=== PATIENT | female | born 1990 | race Caucasian/White ===

== ENCOUNTER 2017-02-18 06:10 | Emergency (ER) | payer OTHER ==
[2017-02-18] MEDS ORDERED: IPRATROPIUM/ALBUTEROL 3 ML VIAL NEB ONE ×2 (06:16→06:29)
[2017-02-18 06:23] VITALS: TEMP 97.5
--- NOTE | 2017-02-18 06:30 | ED.PDOC ---
History of Present Illness - General Chief Complaint: Respiratory Problem Stated Complaint: difficulty breathing Time Seen by Provider: 02/18/17 06:20 Source: patient, RN notes reviewed, Vital Signs reviewed Additional Information: Pt seen in [place] 4 days ago and diagnosed with PNA. Discharged with Z-Jamar, Prednisone, and Ultram. Patient reports right sided chest wall (posterior > anterior) discomfort x 5 days. 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 She remained stable during ED visit with a POX of 95-98% on RA (respiratory effort dependent). She was afebrile with a normal heart rate. She states this am prior to arrival she took Ultram and Prednisone. - History of Present Illness Timing/Duration: days - x 4 to 5 Severity: moderate Activities at Onset: none Possible Cause: unknown cause Improving Factors: medication - inhaler Worsening Factors: nothing Associated Symptoms: denies symptoms Respiratory Risk Factors: no cause identified Allergies/Adverse Reactions: Allergies NO KNOWN ALLERGY Allergy (Verified 02/18/17 06:23) Home Medications: Ambulatory Orders Albuterol Inhaler [Ventolin Hfa Inhaler] 2 puff INH QID PRN #1 inh 02/18/17 Azithromycin 500 mg PO DAILY 02/18/17 Prednisone 10 mg PO BID 02/18/17 Tramadol HCl 50 mg PO QID 02/18/17 Review of Systems - Review of Systems Constitutional: States: see HPI EENTM: States: no symptoms reported Respiratory: States: see HPI, short of breath Cardiology: States: no symptoms reported Gastrointestinal/Abdominal: States: no symptoms reported Genitourinary: States: no symptoms reported Musculoskeletal: States: no symptoms reported Skin: States: no symptoms reported Neurological: States: no symptoms reported Endocrine: States: no symptoms reported Hematologic/Lymphatic: States: no symptoms reported Past Medical History (General) - Patient Medical History Hx Seizures: No Hx Diabetes: No - Vaccination History Hx Tetanus, Diphtheria Vaccination: No Hx Influenza Vaccination: No Hx Pneumococcal Vaccination: No - Social History Hx Tobacco Use: Yes Hx Alcohol Use: Yes - Female History Hx Last Menstrual Period: 05/25/15 Patient : Yes - 17 weeks per patient Expected Date of Delivery:: 03/31/16 Family Medical History - Family History Mother Family History: No Known Living Status: Unknown Physical Exam - Physical Exam General Appearance: Alert, Other - skinny. Intermittent and inconsistent poor respiratory effort. 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 Her X-ray, vital signs, and exam are not consistent with the diagnosis of Pneumonia at this time. This is my first time seeing patient so I am unaware of any interval change/comparison related to her presentation 4 days ago. She does not appear to be in distress. She states she improved after a Duoneb and would like a Rx for an inhaler. I believe patient is stable for discharge home with trial of inhaler. Pt advised to f/u in clinic if unimproved in 2 to 3 days or return to ER if condition worsens. PERC negative making probability of PE less than 2%. - Results/Orders Results/Orders: X-Ray Report: Procedure: XR CHEST 2 VIEWS Exam Date: 02/18/2017 Ordering Provider: Heriberto Crawford Clinical Indication: SOB Comparison: None Findings: Cardiac silhouette: Normal Pulmonary vasculature : Normal Mediastinal contour: Normal Aortic contour: Normal Focal lung consolidation: None Pleural effusion: None Pneumothorax: None Acute bony or soft tissue abnormality: None Impression: 1. No acute abnormalities in the chest. Electronically signed by: Ky Wagoner MD 02/18/2017 6:40 AM CDT Dictated By: Ky Wagoner MD Signed By: Ky Wagoner MD Dictated Date/Time: 02/18/17628 Transcribed Date/Time: 02/18/17628 Spare Parts Clerk: Signed Date/Time: 02/18/17639 CC: Departure - Departure Clinical Impression: Dyspnea Qualifiers: Dyspnea type: shortness of breath Qualified Code(s): R06.02 - Shortness of breath; R06.00 - Dyspnea, unspecified; R06.01 - Orthopnea Time of Disposition: 07:00 Disposition: Discharge to Home or Self Care Condition: Fair Departure Forms: ED Discharge - Pt. Copy, Patient Portal Self Enrollment Instructions: DI for Shortness of Breath Referrals: Jeovany Dahl MD [Primary Care Provider] - 1-2 Weeks Prescriptions: Albuterol Inhaler [Ventolin Hfa Inhaler] 2 puff INH QID PRN #1 inh PRN Reason: Shortness Of Breath/Wheezing Home Medications: Ambulatory Orders Albuterol Inhaler [Ventolin Hfa Inhaler] 2 puff INH QID PRN #1 inh 02/18/17 Azithromycin 500 mg PO DAILY 02/18/17 Prednisone 10 mg PO BID 02/18/17 Tramadol HCl 50 mg PO QID 02/18/17 Additional Instructions: Use inhaler as prescribed. If unimproved in 2 to 3 days, follow-up in Primary Care Clinic. Return to ER if condition worsens.
--- NOTE | 2017-02-18 06:41 | RAD ---
Procedure: XR CHEST 2 VIEWS Exam Date: 02/18/2017 Ordering Provider: Heriberto Crawford Clinical Indication: SOB Comparison: None Findings: Cardiac silhouette: Normal Pulmonary vasculature : Normal Mediastinal contour: Normal Aortic contour: Normal Focal lung consolidation: None Pleural effusion: None Pneumothorax: None Acute bony or soft tissue abnormality: None Impression: 1. No acute abnormalities in the chest. Electronically signed by: Ky Wagoner MD 02/18/2017 6:40 AM CDT
[2017-02-18 07:01] VITALS: BP 109/68; O2SAT 95
== END 2017-02-18 07:01 | disposition home or self-care (01) ==
LOC: ER 06:10
DX: O99.512 Diseases of the respiratory system complicating pregnancy, second trimester (principal); R06.02 Shortness of breath; Z3A.17 17 weeks gestation of pregnancy; Z87.891 Personal history of nicotine dependence
CPT/HCPCS: 71020; 94640; J7620

== ENCOUNTER 2019-05-12 11:12 | Emergency (ER) | payer SELFPAY ==
[2019-05-12] MEDS ORDERED: SODIUM CHLORIDE 0.9% 1000ML 1,000 ML IVS ONE ×2 (11:31→13:16)
[2019-05-12] MEDS ORDERED: ONDANSETRON ODT 8 MG TAB SL ONE (11:31)
--- NOTE | 2019-05-12 12:36 | RAD ---
Procedure: XR ABDOMEN SUPINE AND ERECT WITH CHEST (ABD ACUTE SERIES) Exam Date: 05/12/2019 Ordering Provider: Mehran Sloan Clinical Indication: abd pain, nv 3 days Comparison: 03/07/2012 CT abdomen pelvis Findings: Upright chest x-ray: Cardiomediastinal silhouette is unremarkable. Pulmonary vasculature is unremarkable. There is no consolidation or effusion. No pneumothorax. Flat and upright abdomen: IUD noted. Nonobstructive bowel gas pattern. There is no pneumoperitoneum. There are no suspicious calcifications. No acute osseous abnormalities. Impression: 1. No acute findings. Electronically signed by: Ky Wagoner MD 05/12/2019 12:35 PM DIRECTOR OF ENGINEERING
[2019-05-12] MEDS ORDERED: ACETAMINOPHEN 325 MG TAB PO ONE (13:17)
[2019-05-12] MEDS ORDERED: PENICILLIN BENZATHINE 1.2 MU 1.2 MU/2 ML SYG IM ONE (13:39)
--- NOTE | 2019-05-12 14:58 | CT ---
EXAM DESCRIPTION: Abdoment/Pelvis w/o Contrast CLINICAL HISTORY: 28 years Female, lower abd pain, fever COMPARISON: CT abdomen and pelvis with contrast dated 03/07/2012. TECHNIQUE: Contiguous 3 mm axial images were obtained from the lung bases to the level of the proximal femora without the administration of intravenous or oral contrast. Sagittal and coronal reconstructions were reviewed. FINDINGS: Limited evaluation of the solid organs due to the lack of intravenous contrast. THORAX: The imaged lower thorax demonstrates no gross abnormality. LIVER: The liver demonstrates diffuse fatty infiltration. GALLBLADDER: Not well distended limiting detailed evaluation. PANCREAS: Appears normal with no cystic or solid lesions. SPLEEN: Enlarged in size measuring up to 13 cm. ADRENAL GLANDS: Normal with no nodules or masses. KIDNEYS: The right kidney is mildly enlarged and edematous with surrounding inflammatory stranding. Findings could represent pyonephritis versus sequelae of recent passage of a stone. Left kidney and ureter appear normal. STOMACH: Not well distended limiting detailed evaluation. SMALL BOWEL: The small bowel loops demonstrate variable degrees of distention with no abnormal dilatation or other signs to suggest bowel obstruction. LARGE BOWEL: Majority of the colon is not well-distended limiting detailed evaluation. The appendix is not definitively visualized. No evidence of free intraperitoneal air or fluid. RETROPERITONEUM: The abdominal aorta is nonaneurysmal with no significant atherosclerosis. The inferior vena cava is normal in size and caliber. No abnormally enlarged retroperitoneal lymph nodes are identified. URINARY BLADDER:The urinary bladder is well-distended with no gross abnormality. Intrauterine contraceptive device is noted. Bilateral adnexa appear normal. ADDITIONAL FINDINGS: None. BONES: No significant degenerative changes are identified in the visualized bones.No evidence of osteophytic or osteoblastic lesions. IMPRESSION: The right kidney is mildly enlarged and edematous with surrounding inflammatory stranding. Findings could represent pyonephritis versus sequelae of recent passage of a stone. Clinical correlation with urinalysis is recommended. This exam was performed according to our departmental dose-optimization program, which includes automated exposure control, adjustment of the mA and/or kV according to patient size and/or use of iterative reconstruction technique. Electronically signed by: Fernanda Dash MD 05/12/2019 2:56 PM FURNACE UTILITY OPERATOR
[2019-05-12] MEDS ORDERED: levoFLOXacin 500MG IV 500 MG in PREMIX BAG 1 BAG IVPB ONE (15:01)
[2019-05-12] MEDS ORDERED: SODIUM CHL 0.9% 50ML MIN-BAG+ 50 ML IVPB ONE (15:23)
[2019-05-12] MEDS ORDERED: cefTRIAXone SODIUM 1 GM VIAL ONE (15:23)
[2019-05-12] MEDS: cefTRIAXone SODIUM 1 GM in SODIUM CHL 0.9% 50ML MIN-BAG+ 50 ML IVPB ONE ×2 (15:25→16:37)
[2019-05-12] MEDS ORDERED: cefTRIAXone SODIUM 1 GM VIAL IM ONE (15:55)
[2019-05-12] MEDS ORDERED: CIPROFLOXACIN 500 MG TAB PO ONE (15:55)
--- NOTE | 2019-05-12 15:58 | ED.PDOC ---
History of Present Illness - General Chief Complaint: General Stated Complaint: sorethroat, diarrhea and vomiting Time Seen by Provider: 05/12/19 11:24 Source: patient Exam Limitations: no limitations - History of Present Illness Initial Comments: the patient is a 28-year-old female presenting to the emergency room with right-sided abdominal and back pain has been worsening for the last 3 days. She does currently have a fever. She has had a cough and a sore throat as well. Mild shortness of breath. She has had some nausea and vomiting. No real diarrhea. She has been getting dizzy with sitting. Oral intake has been poor. No rash. Timing/Duration: constant, getting worse Severity: moderate Improving Factors: nothing Worsening Factors: nothing Associated Symptoms: fever/chills, malaise, nausea/vomiting, weakness Allergies/Adverse Reactions: Allergies NO KNOWN ALLERGY Allergy (Verified 05/12/19 12:34) Home Medications: Ambulatory Orders Ciprofloxacin [Cipro] 500 mg PO BID #20 tab 05/12/19 Levonorgestrel (Iud) [Mirena] 0 mcg VAG ONCE 05/12/19 Nitrofurantoin Monohydrate Mac [Macrobid] 100 mg PO BID #20 capsule 05/12/19 Ondansetron Odt [Zofran ODT] 4 mg PO Q8HR PRN #5 tab 05/12/19 Review of Systems - Review of Systems Constitutional: States: fever, malaise EENTM: States: throat pain Respiratory: States: cough Cardiology: States: no symptoms reported Gastrointestinal/Abdominal: States: abdominal pain, nausea, vomiting Genitourinary: States: no symptoms reported Musculoskeletal: States: back pain - right sided Skin: States: no symptoms reported Neurological: States: no symptoms reported Endocrine: States: no symptoms reported All other Systems: No Change from Baseline Past Medical History (General) - Patient Medical History Hx Seizures: No Hx Stroke: No Hx Dementia: No Hx Asthma: No Hx of COPD: No Hx Cardiac Disorders: No Hx Congestive Heart Failure: No Hx Pacemaker: No Hx Hypertension: No Hx Thyroid Disease: No Hx Diabetes: No Hx Gastroesophageal Reflux: No Hx Renal Disease: No Hx Cancer: No Hx of HIV: No Hx Hepatitis C: No Hx MRSA: No Surgical History: no surgical history - Vaccination History Hx Tetanus, Diphtheria Vaccination: No Hx Influenza Vaccination: No Hx Pneumococcal Vaccination: No - Social History Hx Tobacco Use: Yes Hx Chewing Tobacco Use: No Hx Alcohol Use: Yes - socially Hx Substance Use: Yes Hx Substance Use Treatment: No Hx Depression: No Hx Physical Abuse: No Hx Emotional Abuse: No - Female History Patient is a Female of Child Bearing Age (10 -59 yrs old): Yes Hx Last Menstrual Period: 05/25/15 Patient : No Expected Date of Delivery:: 03/31/16 - Triage Comment ED Triage Comment: Mirana control Family Medical History - Family History Mother Family History: No Known Living Status: Unknown Physical Exam - Physical Exam General Appearance: Alert, Ill Appearing Eye Exam: bilateral normal Ears, Nose, Throat: hearing grossly normal, nasal congestion, pharyngeal erythema Neck: full range of motion, supple Respiratory: lungs clear - she does have a mild cough, normal breath sounds, no respiratory distress, no accessory muscle use Cardiovascular/Chest: normal peripheral pulses, no edema, tachycardia Peripheral Pulses: radial,right: 2+, radial,left: 2+, dorsalis pedis,right: 2+, dorsalis pedis,left: 2+ Gastrointestinal/Abdominal: soft, other - diffuse right abdominal discomfort palpation. She does have some guarding. 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, alert, normal mood/affect, oriented x 3 Skin Exam: pallor Comments: Vital Signs - 24 hr 05/12/19 05/12/19 05/12/19 11:20 12:41 13:00 Temperature 101.6 F H Pulse Rate [ 135 H 121 H 109 H pulse ox] Respiratory 22 20 18 Rate Blood Pressure 101/59 121/69 119/66 [Right Arm] O2 Sat by Pulse 99 99 97 Oximetry 05/12/19 05/12/19 14:00 15:00 Temperature 101 F H 98.4 F Pulse Rate [ 111 H 109 H pulse ox] Respiratory 18 18 Rate Blood Pressure 109/59 121/75 [Right Arm] O2 Sat by Pulse 95 100 Oximetry Progress - Progress Progress: 05/12/19 16:00 the patient is a 28-year-old female presenting to emergency room with what appears to be pyelonephritis of the right side. No obvious evidence of any abscess. The patient is feeling much better after 2 L of IV fluids. Additionally she did test positive for streptococcal pharyngitis and received Bicillin LA. She also is receiving a dose of Rocephin IM and a dose of ciprofloxacin by mouth for the pyelonephritis. She is going to be covered for the pyelonephritis with Macrobid for 10 days and ciprofloxacin for 10 days. GC chlamydia test have been sent out however the pelvic exam clinically was essentially benign. The patient also does have some mild hypokalemia and received a dose of oral potassium here. she does need to have a repeat potassium check with her primary care doctor next week. Tachycardia has significantly improved. She does need to keep herself well-hydrated. Obviously if she is worsening rather than improving then she will need to come back in for IV antibiotics. The patient is clinically improving. She is a difficult IV access and has deferred further attempts at this time in favor of the plan of care above. This does seem to be a reasonable plan of care. ER warnings were given. [email or web address] [email or web address] [id number] 05/12/19 16:03 - Results/Orders Results/Orders: Laboratory Tests 05/12/19 05/12/19 05/12/19 12:40 12:40 12:40 WBC RBC Hgb Hct MCV MCH MCHC RDW Plt Count MPV Absolute Neuts (auto) Absolute Lymphs (auto) Absolute Monos (auto) Absolute Eos (auto) Neutrophils % Neutrophils % (Manual) Lymphocytes % Lymphocytes % (Manual) Monocytes % Monocytes % (Manual) Eosinophils % Basophils % Band Neutrophils Platelet Estimate Normal RBC Morphology Sodium 130 L Potassium 2.9 L Chloride 97 L Carbon Dioxide 21 Anion Gap 14.9 BUN 20 H Creatinine 1.11 BUN/Creatinine Ratio 18.0 Random Glucose 113 H Serum Osmolality 264.2 L Lactic Acid Cancelled Calcium 7.4 L Magnesium 1.2 L Total Bilirubin 0.6 AST 25 ALT 61 H Alkaline Phosphatase 66 Creatine Kinase 21 L CK-MB (CK-2) 0.4 CK-MB (CK-2) % Not Reportable Troponin I < 0.02 Serum Total Protein 6.6 Albumin 3.1 L Globulin 3.5 Albumin/Globulin Ratio 0.9 L Amylase 20 L Lipase < 14 L Serum HCG, Qual Cancelled Urine Color Urine Appearance Urine pH Ur Specific Spray Urine Protein Urine Glucose (UA) Urine Ketones Urine Blood Urine Nitrite Urine Bilirubin Urine Urobilinogen Ur Leukocyte Esterase Urine RBC Urine WBC Ur Epithelial Cells Urine Bacteria Urine Mucus Urine HCG, Qual Negative Group A Strep Rapid Positive 05/12/19 05/12/19 13:00 14:45 WBC 10.1 RBC 3.80 L Hgb 11.4 L Hct 33.3 L MCV 87.6 MCH 30.1 MCHC 34.3 RDW 12.8 Plt Count 142 MPV 8.3 Absolute Neuts (auto) Not Reportable Absolute Lymphs (auto) Not Reportable Absolute Monos (auto) Not Reportable Absolute Eos (auto) Not Reportable Neutrophils % Not Reportable Neutrophils % (Manual) 82.0 H Lymphocytes % Not Reportable Lymphocytes % (Manual) 9.0 Monocytes % Not Reportable Monocytes % (Manual) 4.0 Eosinophils % Not Reportable Basophils % Not Reportable Band Neutrophils 5.0 H Platelet Estimate Normal Normal RBC Morphology Normal rbc morph Sodium Potassium Chloride Carbon Dioxide Anion Gap BUN Creatinine BUN/Creatinine Ratio Random Glucose Serum Osmolality Lactic Acid Calcium Magnesium Total Bilirubin AST ALT Alkaline Phosphatase Creatine Kinase CK-MB (CK-2) CK-MB (CK-2) % Troponin I Serum Total Protein Albumin Globulin Albumin/Globulin Ratio Amylase Lipase Serum HCG, Qual Urine Color Yellow Urine Appearance Cloudy Urine pH 6.0 Ur Specific Spray 1.020 Urine Protein 100 H Urine Glucose (UA) Negative Urine Ketones Trace Urine Blood Large H Urine Nitrite Positive H Urine Bilirubin Small H Urine Urobilinogen 4.0 H Ur Leukocyte Esterase Moderate H Urine RBC >50 H Urine WBC >50 H Ur Epithelial Cells 3-5 Urine Bacteria 4+ H Urine Mucus Large Urine HCG, Qual Group A Strep Rapid acute abdominal series appears benign. CT of abdomen and pelvis without contrast shows no evidence of any appendicitis or gallbladder issue however there does appear to be some perinephric stranding around the right kidney. Departure - Departure Clinical Impression: Pyelonephritis, Hypokalemia, Strep throat, Dehydration Disposition: Discharge to Home or Self Care Condition: Fair Departure Forms: ED Discharge - Pt. Copy, Patient Portal Self Enrollment Instructions: Urinary Tract Infection, Adult (DC), Kidney Infection (DC), Hypokalemia (DC), Sore Throat, Adult (DC) Diet: bland diet Activity: increase activity as tolerated Prescriptions: Ondansetron Odt [Zofran ODT] 4 mg PO Q8HR PRN #5 tab PRN Reason: Nausea--Moderate Ciprofloxacin [Cipro] 500 mg PO BID #20 tab Nitrofurantoin Monohydrate Mac [Macrobid] 100 mg PO BID #20 capsule Home Medications: Ambulatory Orders Ciprofloxacin [Cipro] 500 mg PO BID #20 tab 05/12/19 Levonorgestrel (Iud) [Mirena] 0 mcg VAG ONCE 05/12/19 Nitrofurantoin Monohydrate Mac [Macrobid] 100 mg PO BID #20 capsule 05/12/19 Ondansetron Odt [Zofran ODT] 4 mg PO Q8HR PRN #5 tab 05/12/19 Additional Instructions: the patient is a 28-year-old female presenting to emergency room with what appears to be pyelonephritis of the right side. No obvious evidence of any abscess. The patient is feeling much better after 2 L of IV fluids. Additionally she did test positive for streptococcal pharyngitis and received Bicillin LA. She also is receiving a dose of Rocephin IM and a dose of ciprofloxacin by mouth for the pyelonephritis. She is going to be covered for the pyelonephritis with Macrobid for 10 days and ciprofloxacin for 10 days. GC chlamydia test have been sent out however the pelvic exam clinically was essentially benign. The patient also does have some mild hypokalemia and received a dose of oral potassium here. she does need to have a repeat potassium check with her primary care doctor next week. Tachycardia has significantly improved. She does need to keep herself well-hydrated. Obviously if she is worsening rather than improving then she will need to come back in for IV antibiotics. The patient is clinically improving. She is a difficult IV ac cess and has deferred further attempts at this time in favor of the plan of care above. This does seem to be a reasonable plan of care. ER warnings were given.
[2019-05-12] MEDS ORDERED: POTASSIUM CHLORIDE ELIXIR 20 MEQ/15 ML UD PO ONE (16:03)
[2019-05-12] MEDS ORDERED: LIDOCAINE 1% 2 ML VIAL INJ ONE (16:10)
[2019-05-12] MEDS ORDERED: traMADol HCL 50 MG TAB PO ONE (16:29)
[2019-05-12 16:41] VITALS: BP 118/68; TEMP 99; O2SAT 97
== END 2019-05-12 16:41 | disposition home or self-care (01) ==
LOC: ER 11:12
DX: N12 Tubulo-interstitial nephritis, not specified as acute or chronic (principal); J02.0 Streptococcal pharyngitis; E86.0 Dehydration; E87.6 Hypokalemia; R11.2 Nausea with vomiting, unspecified; Z87.891 Personal history of nicotine dependence
CPT/HCPCS: 36415; 74019; 74176; 80053; 81001; 81025; 82150; 82550; 82553; 83690; 83735; 84484; 85025; 87086; 87210; 87491; 87502; 87591; 87880; J0561; J0696; J7030; J7050

== ENCOUNTER 2020-02-26 14:11 | Inpatient (IN) | payer SELFPAY ==
[2020-02-26] MEDS ORDERED: PROMETHAZINE HCL INJ 25 MG in SODIUM CHLORIDE 0.9% 50ML 50 ML IVPB ONE (14:44)
[2020-02-26] MEDS ORDERED: SODIUM CHLORIDE 0.9% 1000ML 1,000 ML IVS ONE (14:44)
--- NOTE | 2020-02-26 15:52 | RAD ---
EXAM DESCRIPTION: Abdomen Series CLINICAL HISTORY: 29 years Female, nv, rt flank pain COMPARISON: May 12, 2019 FINDINGS: Single view of the chest demonstrates a normal-sized heart and normal vascularity. The lungs are well-expanded and clear. No infiltrates. No free abdominal Bowel gas pattern is normal without obstruction or ileus. Small air-fluid level within the stomach noted and nonspecific. IUD overlies the right-sided central pelvis small amount of radiopaque material in the right lower quadrant likely represents ingested material in the distal small bowel or right colon. No obstruction or ileus noted. Bony spine and pelvis are unremarkable. Calculi overlying the contours of the kidneys not apparent. Small density overlying paraspinous regions on the left and along the psoas margin on the right are not evident on the upright view and likely represent foreign material within the bowel. IMPRESSION: Normal abdominal series including chest one view and abdomen two views Electronically signed by: Wilmar Bower MD 02/26/2020 3:50 PM CDT
[2020-02-26] MEDS ORDERED: MAGNESIUM SULFATE PREMIX 4GM 4 GM in PREMIX BAG 1 BAG IVPB ONE (16:02)
[2020-02-26] MEDS ORDERED: KCL 40MEQ/NS 1,000 ML IVS ONE (16:02)
[2020-02-26] MEDS ORDERED: SUCRALFATE 1 GM/10 ML 1 GM UD PO ONE (16:03)
[2020-02-26] MEDS ORDERED: cefTRIAXone SODIUM 1 GM in SODIUM CHL 0.9% 50ML MIN-BAG+ 50 ML IVPB ONE (17:35)
[2020-02-26] MEDS ORDERED: HYDROcodone 5MG/APAP 325MG 1 EA TAB PO ONE (18:02)
--- NOTE | 2020-02-26 18:58 | CT ---
EXAM: CT Abdomen and Pelvis With Intravenous Contrast CLINICAL HISTORY: left side pain, n/v, uti TECHNIQUE: Axial computed tomography images of the abdomen and pelvis with intravenous contrast. Sagittal and coronal reformatted images were created and reviewed. This CT exam was performed using one or more of the following dose reduction techniques: automated exposure control, adjustment of the mA and/or kV according to patient size, and/or use of iterative reconstruction technique. COMPARISON: 05/12/2019. FINDINGS: Limitations: None. Lung bases: No abnormality noted. Pleural space: No abnormality noted. ABDOMEN: Liver: Upper normal size of the liver. No mass or ductal dilatation. Gallbladder and bile ducts: The gallbladder is collapsed and not optimally assessed. Appearance stable. Pancreas: Homogeneous enhancement. No mass, inflammation or ductal dilation. Spleen: The spleen is upper normal size. Adrenals: Visualized portions appear normal. Kidneys and ureters: There is heterogeneous enhancement of both kidneys with areas of hypoattenuation left greater than right. No hydronephrosis or stone. Mild bilateral perinephric edema noted. There is bilateral mild urothelial thickening. No stones or mass. Stomach and bowel: No distension or mucosal thickening. No inflammation noted. PELVIS: Appendix: Well seen and appears normal. Bladder: No filling defects to suggest mass or large stone. No inflammation. Reproductive: No abnormalities noted. ABDOMEN and PELVIS: Intraperitoneal space: No free air. No significant fluid collection. Bones/joints: No acute fracture or osseous destruction. Normal alignment. Soft tissues: No abnormality noted. Vasculature: No abdominal aortic aneurysm. Lymph nodes: No pathologically enlarged lymph nodes. Tubes, lines and devices: Intrauterine contraceptive device in good position. IMPRESSION: Abnormalities of the kidneys and urothelium most consistent with left greater than right bilateral pyelonephritis. Electronically signed by: Maribell Dang MD 02/26/2020 6:56 PM CDT
[2020-02-26] MEDS ORDERED: levoFLOXacin 500MG IV 500 MG in PREMIX BAG 1 BAG IVPB ONE (19:02)
--- NOTE | 2020-02-26 19:18 | ED.PDOC ---
History of Present Illness - General Chief Complaint: Abdominal Pain Stated Complaint: abdominal/back pain Time Seen by Provider: 02/26/20 14:27 Source: patient Exam Limitations: no limitations - History of Present Illness Initial Comments: The patient is a 29-year-old female presenting to the emergency room secondary to left-sided back pain with associated nausea and vomiting over the last 2 to 3 days. She has been vomiting at least every hour or so. No blood. Questionable fevers. She has had diaphoresis. She has had some urinary frequency. She thinks that she has had a history of kidney stones. She reports having a Mirena in place. She has had pyelonephritis in the past. She feels weak and dizzy and does have a headache. No runny nose or sore throat. Timing/Duration: other - 2 to 3 days Severity: severe Improving Factors: nothing Worsening Factors: movement Associated Symptoms: diaphoresis, fever/chills, headaches, loss of appetite, malaise, nausea/vomiting Allergies/Adverse Reactions: Allergies NO KNOWN ALLERGY Allergy (Verified 02/26/20 15:55) Home Medications: Ambulatory Orders Ciprofloxacin [Cipro] 500 mg PO BID #20 tab 05/12/19 Levonorgestrel (Iud) [Mirena] 0 mcg VAG ONCE 05/12/19 Nitrofurantoin Monohydrate Mac [Macrobid] 100 mg PO BID #20 capsule 05/12/19 Ondansetron Odt [Zofran ODT] 4 mg PO Q8HR PRN #5 tab 05/12/19 Review of Systems - Review of Systems Constitutional: States: fever, malaise EENTM: States: no symptoms reported Respiratory: States: no symptoms reported Cardiology: States: no symptoms reported Gastrointestinal/Abdominal: States: abdominal pain, nausea, vomiting Genitourinary: States: frequency Musculoskeletal: States: back pain Skin: States: no symptoms reported Neurological: States: headache Endocrine: States: no symptoms reported All other Systems: No Change from Baseline Past Medical History (General) - Patient Medical History Hx Seizures: No Hx Stroke: No Hx Dementia: No Hx Asthma: No Hx of COPD: No Hx Cardiac Disorders: No Hx Congestive Heart Failure: No Hx Pacemaker: No Hx Hypertension: No Hx Thyroid Disease: No Hx Diabetes: No Hx Gastroesophageal Reflux: No Hx Renal Disease: No Hx Cancer: No Hx of HIV: No Hx Hepatitis C: No Hx MRSA: No - Vaccination History Hx Tetanus, Diphtheria Vaccination: No Hx Influenza Vaccination: No Hx Pneumococcal Vaccination: No - Social History Hx Tobacco Use: Yes Hx Chewing Tobacco Use: No Hx Alcohol Use: Yes - socially Hx Substance Use: Yes Hx Substance Use Treatment: No Hx Depression: No Hx Physical Abuse: No Hx Emotional Abuse: No - Activities of Daily Living Hospice Agency (if applicable):: None - Female History Patient is a Female of Child Bearing Age (10 -59 yrs old): No Hx Last Menstrual Period: 05/25/15 Patient : No Expected Date of Delivery:: 03/31/16 Family Medical History - Family History Mother Family History: No Known Living Status: Unknown Physical Exam - Physical Exam General Appearance: Alert, Obvious distress, Ill Appearing Eye Exam: bilateral normal Ears, Nose, Throat: hearing grossly normal, normal pharynx Neck: full range of motion, supple Respiratory: lungs clear, normal breath sounds, no respiratory distress, no accessory muscle use Cardiovascular/Chest: normal peripheral pulses, no edema, tachycardia Peripheral Pulses: radial,right: 2+, radial,left: 2+ Gastrointestinal/Abdominal: soft, other - Mild left-sided discomfort to palpation. No rebound or peritoneal signs. Rectal Exam: deferred Back Exam: CVA tenderness (L) Extremity: normal range of motion, non-tender, normal inspection, no pedal edema, normal capillary refill Neurologic: menu planner II-XII nml as tested, alert, normal mood/affect, oriented x 3 Skin Exam: normal color Comments: Vital Signs - 8 hr 02/26/20 02/26/20 02/26/20 14:43 15:50 16:00 Temperature 99.2 F 99.2 F Pulse Rate [ 121 H 121 H 106 H brachial] Respiratory 22 22 22 Rate Blood Pressure 116/70 123/74 [Left Arm] O2 Sat by Pulse 95 96 Oximetry 02/26/20 02/26/20 17:00 18:00 Temperature Pulse Rate [ 96 H 95 H brachial] Respiratory 16 16 Rate Blood Pressure 112/71 115/66 [Left Arm] O2 Sat by Pulse 95 95 Oximetry Progress - Progress Progress: 02/26/20 19:20 The patient is a 29-year-old female presented emergency room secondary to nausea and vomiting for last couple of days it appears to be due to bilateral pyelonephritis. The patient has been started on Rocephin and Levaquin. She has additionally tested positive for strep throat, however she is asymptomatic at this time. She may be a carrier for that. She may benefit from a dose of Bicillin in the near future. The patient does have some electrolyte abnormalities which we are correcting here. These will need to be followed. Admit for IV antibiotics for bilateral pyelonephritis with significant nausea and vomiting. The patient did receive a liter of IV fluids for the dehydration. She also received some acid reducing medications. Admit for continued care. - Results/Orders Results/Orders: CT scan of abdomen pelvis confirms bilateral pyelonephritis, left greater than right. See report for additional details Laboratory Tests 02/26/20 02/26/20 02/26/20 15:00 15:05 15:15 WBC RBC Hgb Hct MCV MCH MCHC RDW Plt Count MPV Absolute Neuts (auto) Absolute Lymphs (auto) Absolute Monos (auto) Absolute Eos (auto) Absolute Basos (auto) Neutrophils % Lymphocytes % Monocytes % Eosinophils % Basophils % Sodium 131 L Potassium 3.1 L Chloride 96 L Carbon Dioxide 19 L Anion Gap 19.1 H BUN 11 Creatinine 0.83 BUN/Creatinine Ratio 13.3 Random Glucose 135 H Serum Osmolality 264.1 L Lactic Acid Calcium 9.1 Magnesium 1.5 L Total Bilirubin 1.2 H AST 30 ALT 98 H Alkaline Phosphatase 101 Creatine Kinase 37 CK-MB (CK-2) 0.5 CK-MB (CK-2) % Not Reportable Troponin I < 0.02 B-Natriuretic Peptide 33.1 Serum Total Protein 8.0 Albumin 4.0 Globulin 4.0 H Albumin/Globulin Ratio 1.0 L Amylase 33 Lipase 21 L TSH 0.67 Serum HCG, Qual Negative Urine Color Urine Appearance Urine pH Ur Specific [place] Urine Protein Urine Glucose (UA) Urine Ketones Urine Blood Urine Nitrite Urine Bilirubin Urine Urobilinogen Ur Leukocyte Esterase Urine RBC Urine WBC Ur Epithelial Cells Amorphous Sediment Urine Bacteria Group A Strep Rapid Positive H 02/26/20 02/26/20 02/26/20 15:15 15:15 16:20 WBC 11.0 H RBC 4.00 L Hgb 12.7 Hct 36.0 MCV 90.0 MCH 31.8 H MCHC 35.3 RDW 12.4 Plt Count 189 MPV 8.4 Absolute Neuts (auto) 9.20 H Absolute Lymphs (auto) 0.50 L Absolute Monos (auto) 1.20 H Absolute Eos (auto) 0.10 Absolute Basos (auto) 0.00 Neutrophils % 83.3 H Lymphocytes % 4.5 L Monocytes % 11.1 H Eosinophils % 0.7 L Basophils % 0.4 Sodium Potassium Chloride Carbon Dioxide Anion Gap BUN Creatinine BUN/Creatinine Ratio Random Glucose Serum Osmolality Lactic Acid 1.4 Calcium Magnesium Total Bilirubin AST ALT Alkaline Phosphatase Creatine Kinase CK-MB (CK-2) CK-MB (CK-2) % Troponin I B-Natriuretic Peptide Serum Total Protein Albumin Globulin Albumin/Globulin Ratio Amylase Lipase TSH Serum HCG, Qual Urine Color Yellow Urine Appearance Clear Urine pH 5.5 Ur Specific [place] 1.010 Urine Protein Negative Urine Glucose (UA) Negative Urine Ketones 40 H Urine Blood Moderate H Urine Nitrite Negative Urine Bilirubin Negative Urine Urobilinogen 1.0 Ur Leukocyte Esterase Moderate H Urine RBC 5-10 H Urine WBC 20-30 H Ur Epithelial Cells 3-5 Amorphous Sediment 2+ Urine Bacteria 2+ H Group A Strep Rapid Departure - Departure Clinical Impression: Pyelonephritis, Dehydration, Hypokalemia, Hypomagnesemia Nausea and vomiting Qualifiers: Vomiting type: unspecified Vomiting Intractability: non-intractable Qualified Code(s): R11.2 - Nausea with vomiting, unspecified Disposition: Admit Patient Departure Forms: ED Discharge - Pt. Copy, Patient Portal Self Enrollment Home Medications: Ambulatory Orders Ciprofloxacin [Cipro] 500 mg PO BID #20 tab 05/12/19 Levonorgestrel (Iud) [Mirena] 0 mcg VAG ONCE 05/12/19 Nitrofurantoin Monohydrate Mac [Macrobid] 100 mg PO BID #20 capsule 05/12/19 Ondansetron Odt [Zofran ODT] 4 mg PO Q8HR PRN #5 tab 05/12/19 Decision To Admit - Decistion To Admit Decision to Admit Reason: Medical Nature Decision to Admit Date: 02/26/20 Decision to Admit Time: 19:22
--- NOTE | 2020-02-26 19:50 | HP ---
SUPERVISING PHYSICIAN: Ken Cason MD CHIEF COMPLAINT: Abdominal and back pain. HISTORY OF PRESENT ILLNESS: This is a 29 year-old female patient who presented to the Emergency Room for back pain that was especially located to the left side. She has had nausea and vomiting that has been going on for the past 1 to 2 days. There are no other symptoms noted. She does have a history of kidney stones and has had pyelonephritis in the past. Her initial vital signs showed a low grade temperature of 99.0, heart rate 121, blood pressure 116/70, respiratory rate 22. Her lab studies showed a WBC of 11,000 with hemoglobin of 12.7, hematocrit 36. She did have a left shift on her differential. Sodium 131, potassium 3.1, chloride 96, carbon dioxide 19, BUN 11, creatinine 0.83, magnesium 1.5, bilirubin of 1.2. ALT 98. Serum HCG was negative. Amylase 33, lipase 21, lactic acid 1.4. Urinalysis showed 40 urine ketones, moderate urine blood, moderate urine leukocyte esterase, 5 to 10 urine RBCs, 20 to 30 urine WBCs and 2+ urine bacteria. Group A strep was positive. Urine culture was ordered. Blood cultures were drawn, she is Covid-19 negative. Abdominal x-ray showed normal abdominal series including chest one-view and abdomen 2-view. Her abdomen/pelvis CT showed abnormalities of the kidney and the urothelial most consistent with left greater than right bilateral pyelonephritis. The patient was given Levaquin and ceftriaxone as well as some fluids and was given some pain medication and admitted to the hospital in stable condition. PAST MEDICAL HISTORY: 1. Pyelonephritis. 2. History of kidney stones. 3. History of drug abuse. PAST SURGICAL HISTORY: None. CURRENT MEDICATIONS: ALLERGIES: No known drug allergies. FAMILY HISTORY: SOCIAL HISTORY: She lives in [place]. She smokes cigarettes. She has a history of drug abuse but has stopped. She drinks alcohol on a social bases. REVIEW OF SYSTEMS: GENERAL: Positive for low-grade fever, negative for chills or weight changes. HEENT: Negative for sinus symptoms, ear pain, vision changes, sore throat. RESPIRATORY: Negative for coughing, wheezing, shortness of breath CARDIAC: Negative for chest pain, palpitations, tachycardia. GI: Positive for nausea and vomiting, negative for constipation or diarrhea. GENITOURINARY: Negative for hematuria, dysuria, polyuria. MUSCULOSKELETAL: Positive for bilateral back pain. Negative for arthralgias or myalgias. SKIN: Negative for lesions or rashes. NEUROLOGICAL: Positive for dizziness and weakness. Negative for seizures. PHYSICAL EXAMINATION: VITAL SIGNS: Temperature 98.2, heart rate 68, blood pressure 102/66, respiratory rate 20, oxygen saturation 98% on room air. GENERAL: This is a 29 year-old female patient who is lying in her hospital bed. She is in no acute distress. HEENT: Normocephalic and atraumatic. Pupils are equal and reactive. Oropharynx is clear. NECK: Supple without mass. CHEST: Essentially clear to auscultation bilaterally. CARDIOVASCULAR: Regular rate and rhythm. ABDOMEN: Soft, nondistended, non-tender. Bowel sounds are positive. BACK: CVA tenderness bilaterally. Her left side is more tender than the right side. EXTREMITIES: Skin is warm and dry. GENITOURINARY: Deferred. NEUROLOGIC: She is awake, alert, and oriented x3. Cranial nerves II through XII are grossly intact as tested. Labs and films are as per the history of present illness. ASSESSMENT: 1. Sepsis related to bilateral pyelonephritis with admitting heart rate of 121, respiratory rate 22 and a low-grade of 99.2. She did have an elevated WBC at 11,000. She was positive for bilateral pyelonephritis per CT exam. 2. Streptococcal pharyngitis. 3. History of drug obese. 4. Nicotine abuse. PLAN: Patient has been admitted in stable condition. We will continue with the Levaquin and Rocephin and monitor her cultures as they become available. I have also ordered GC Chlamydia screen, although she denies any other partners but her significant other for quite some time. We discussed tobacco cessation and hopefully we can discharge in the next 2 days or so. I have ordered some lab for in the morning. We will continue to monitor her closely and follow as needed. #[id number] [facility]
[2020-02-26] MEDS ORDERED: SODIUM CHLORIDE 0.9% (FLUSH) 10 ML SYG IV PRN (21:11)
[2020-02-26] MEDS ORDERED: IV SET AND CAP CHANGE INJ INJ SCH (21:30)
[2020-02-26] MEDS ORDERED: PROMETHAZINE HCL INJ 25 MG in SODIUM CHLORIDE 0.9% 50ML 50 ML IVPB PRN (21:35)
[2020-02-26] MEDS ORDERED: SODIUM CHLORIDE 0.9% 50ML 50 ML ONE (21:37)
[2020-02-26] MEDS ORDERED: PROMETHAZINE HCL INJ 25 MG/ML VIAL ONE (21:37)
[2020-02-26] MEDS: KCL 40 MEQ/D5 1/2NS 1,000 ML IVS PRN (22:03)
[2020-02-26] MEDS ORDERED: ONDANSETRON INJ 4 MG/2 ML VIAL IV PRN (22:58)
[2020-02-27] MEDS: traMADol HCL 50 MG TAB PO PRN ×2 (04:23→15:39)
[2020-02-27] MEDS: KCL 40 MEQ/D5 1/2NS 1,000 ML IVS PRN ×3 (06:06→23:40)
[2020-02-27] MEDS ORDERED: KETOROLAC TROMETHAMINE INJ 30 MG/ML VIAL IV ONE (06:07)
[2020-02-27] MEDS: PANTOPRAZOLE SODIUM IV 40 MG VIAL IV SCH (06:16)
[2020-02-27] MEDS: cefTRIAXone SODIUM 1 GM in SODIUM CHL 0.9% 50ML MIN-BAG+ 50 ML IVPB SCH (09:22)
[2020-02-27] MEDS: levoFLOXacin 500MG IV 500 MG in PREMIX BAG 1 BAG IVPB SCH (10:05)
[2020-02-27] MEDS: KETOROLAC TROMETHAMINE INJ 30 MG/ML VIAL IV SCH ×2 (12:14→17:31)
[2020-02-27] MEDS ORDERED: ACETAMINOPHEN 325 MG TAB PO PRN (17:24)
[2020-02-27] MEDS ORDERED: ACETAMINOPHEN 325 MG TAB ONE (17:27)
[2020-02-27] MEDS ORDERED: ENOXAPARIN SODIUM 40 MG/0.4 ML SYG SUBCU ONE (19:07)
[2020-02-27] MEDS ORDERED: KETOROLAC TROMETHAMINE INJ 30 MG/ML VIAL ONE (19:07)
[2020-02-27] MEDS ORDERED: ENOXAPARIN SODIUM 40 MG/0.4 ML SYG SUBCU SCH (21:00)
[2020-02-28] MEDS: KETOROLAC TROMETHAMINE INJ 30 MG/ML VIAL IV SCH ×2 (00:07→06:02)
[2020-02-28] MEDS: traMADol HCL 50 MG TAB PO PRN (02:15)
[2020-02-28] MEDS: PANTOPRAZOLE SODIUM IV 40 MG VIAL IV SCH (06:05)
[2020-02-28] MEDS ORDERED: ASPIRIN (ENTERIC COATED) 81 MG TAB PO ONE (09:01)
[2020-02-28] MEDS ORDERED: CLOPIDOGREL 75 MG TAB ONE (09:01)
[2020-02-28] MEDS: cefTRIAXone SODIUM 1 GM in SODIUM CHL 0.9% 50ML MIN-BAG+ 50 ML IVPB SCH (09:15)
[2020-02-28 09:22] VITALS: BP 100/65; TEMP 97.3; O2SAT 99
[2020-02-28] MEDS: levoFLOXacin 500MG IV 500 MG in PREMIX BAG 1 BAG IVPB SCH (10:20)
--- NOTE | 2020-02-28 21:33 | DS ---
SUPERVISING PHYSICIAN: Ken Cason M.D. ADMISSION DIAGNOSIS: 1. Bilateral pyelonephritis. 2. Sepsis secondary to #1. 3. Group A Streptococcal pharyngitis. 4. History of drug abuse. 5. Nicotine addiction in a current smoker. DISCHARGE DIAGNOSIS: 1. Sepsis secondary to bilateral pyelonephritis. 2. Bilateral pyelonephritis as noted on CT exam. 3. Group A Streptococcal pharyngitis. 4. Past history of drug abuse. 5. Chronic nicotine addiction in a current smoker. REASON FOR HOSPITALIZATION: This is a 29 year-old female patient who presented to the Emergency Room for back pain that was especially located to the left side. She has had nausea and vomiting that has been going on for the past 1 to 2 days. There are no other symptoms noted. She does have a history of kidney stones and has had pyelonephritis in the past. Her initial vital signs showed a low grade temperature of 99.0, heart rate 121, blood pressure 116/70, respiratory rate 22. Her lab studies showed a WBC of 11,000 with hemoglobin of 12.7, hematocrit 36. She did have a left shift on her differential. Sodium 131, potassium 3.1, chloride 96, carbon dioxide 19, BUN 11, creatinine 0.83, magnesium 1.5, bilirubin of 1.2. ALT 98. Serum HCG was negative. Amylase 33, lipase 21, lactic acid 1.4. Urinalysis showed 40 urine ketones, moderate urine blood, moderate urine leukocyte esterase, 5 to 10 urine RBCs, 20 to 30 urine WBCs and 2+ urine bacteria. Group A strep was positive. Urine culture was ordered. Blood cultures were drawn, she is Covid-19 negative. Abdominal x-ray showed normal abdominal series including chest one-view and abdomen 2-view. Her abdomen/pelvis CT showed abnormalities of the kidney and the urothelial most consistent with left greater than right bilateral pyelonephritis. The patient was given Levaquin and ceftriaxone as well as some fluids and was given some pain medication and admitted to the hospital in stable condition. LABORATORY STUDIES: White count on discharge was 7,400. Hemoglobin 10.7, hematocrit 30.9, platelet count 181,000. Differential showed to be without a left shift. Chemistries showed normal electrolytes. Creatinine is 0.58. Liver functions were all within normal limits. Calcium normal, magnesium normal. Urine HCG was negative on admission. Urinalysis showed 40 of ketones, moderate amount of blood, moderate leukocyte esterase. Microscopic revealed 5 to 10 RBCs, 20 to 30 WBCs, 3 to 5 epithelials with 2+ bacteria. She had a GC Chlamydia pending. At discharge, Group A Strep rapid test was positive. MICROBIOLOGY: Final urine culture showed Escherichia coli that was sensitive to all but Ampicillin. Respiratory panel showed negative for all bacterial and viral targets as tested, including COVID. Blood cultures were showing to be negative at 48 hours. RADIOLOGY: She had an abdominal x-ray plus abdominal/pelvis CT with the CT with IV contrast per radiology interpretation showing left greater than right bilateral pyelonephritis. Please see that report for details. HOSPITAL COURSE: Ms. Muller was admitted and treated for bilateral pyelonephritis. Initially she was not able to take any oral medications, therefore she was admitted with concerns for sepsis. She was treated aggressively with IV antibiotics including Levaquin. Cultures came back as Escherichia coli that was sensitive to all but Ampicillin. The patient was no longer having any nausea or vomiting. Pain had decreased. She was no longer showing to be symptomatic. She was afebrile. Vital signs were showing to be stable. On discharge, temperature was 97.3, pulse 60, blood pressure 100/65, respirations 16, satting 99% on room air. It was felt that she had clinically improved well enough to continue with outpatient management, therefore she was discharged home. PLAN: Ms. Muller was discharged to continue with outpatient treatment plan for pyelonephritis with Ciprofloxacin 500 mg twice daily for 14 days. She was to resume her usual diet as tolerated. She is to followup with [facility], call them for an appointment on Sunday. She was encouraged to push fluids and to start on a probiotic [id number] of choice. She was given warnings to return to the Emergency Department should she have any concerning symptoms, return of fever, return of pain or any nausea or vomiting. Diet was as tolerated. Activity is as tolerated. Medications on discharge included: 1. Ciprofloxacin 500 mg b.i.d. for 14 days. No refills. 2. Probiotic of choice. Condition on discharge was stable and improved. DISPOSITION: The patient is discharged home. #[id number] [facility]
== END 2020-02-28 12:03 | disposition home or self-care (01) | DRG 872 ==
LOC: ER 14:11 → OBSVTOIN 19:48 → MS 19:48
PROVIDERS: ADMIT Nurse Practitioner Acute Care; ATTEND Nurse Practitioner Family
PROC: BW211ZZ Computerized Tomography (CT Scan) of Abdomen and Pelvis using Low Osmolar Contrast (ICD-10-PCS; principal; 2020-02-26)
DX: A41.51 Sepsis due to Escherichia coli [E. coli] (principal); N12 Tubulo-interstitial nephritis, not specified as acute or chronic; J02.0 Streptococcal pharyngitis; E86.0 Dehydration; E87.6 Hypokalemia; E83.42 Hypomagnesemia; F17.210 Nicotine dependence, cigarettes, uncomplicated